=== PATIENT | female | born 2000 | race Caucasian/White ===

== ENCOUNTER 2020-06-12 17:18 | Emergency (ER) | payer BC ==
[~2020-06-12] VITALS: Ht 162.6 cm; Wt 48.5 kg
[2020-06-12 17:35] VITALS: BP 117/78
[2020-06-12 18:32] LABS: UCG SCREEN NEGATIVE
== END 2020-06-12 19:03 | disposition home or self-care (01) ==
LOC: ER 17:18
DX: R55 Syncope and collapse (principal)
CPT/HCPCS: 81025; 93005; 99284